=== PATIENT | male | born 1960 | race African-American/Black ===

== ENCOUNTER 2021-02-03 15:07 | Emergency (ER) | payer MEDICAID, OTHER ==
[~2021-02-03] VITALS: Ht 177.8 cm; Wt 90.0 kg
[2021-02-03 15:09] VITALS: BP 143/79
== END 2021-02-03 17:46 | disposition left against medical advice (07) ==
LOC: ER 15:07
DX: Z53.21 Procedure and treatment not carried out due to patient leaving prior to being seen by health care provider (principal)